=== PATIENT | female | born 1935 | race Caucasian/White ===

== ENCOUNTER 2018-03-31 15:04 | Observation (INO) ==
[2018-03-31 15:43] LABS: Basophils % 0.5 %; Eosinophils # 0.3 K/mcL (0.0-0.6); Eosinophils % 3.5 %; Hematocrit 26.4 % (35.3-44.9); Hemoglobin 9.1 g/dL (11.5-15.4); Lymphocytes % 25.2 %; Mean Corpuscular HGB Conc 34.5 g/dL (31.6-35.5); Mean Corpuscular Hemoglobin 31.6 pg (28.0-33.3); Mean Corpuscular Volume 91.7 fL (83.0-100.0); Mean Platelet Volume 11.1 fL (9.4-12.4); Monocytes # 0.9 K/mcL (0.0-1.3); Monocytes % 11.6 %; Neutrophils # 4.7 K/mcL (1.6-8.9); Nucleated Red Blood Cells 0.4 /100 WBC (0); Platelet Count 247 K/mcL (140-400); Red Blood Count 2.88 M/mcL (3.82-4.97); Red Cell Distribution Width 13.5 % (11.5-14.5); Segmented Neutrophils % 58.2 %
[2018-03-31 15:52] LABS: Prothrombin Time 10.9 Seconds (9.4-12.1)
[2018-03-31 15:54] LABS: Activated Partial Thrombo Time 27.8 Seconds (26.0-36.0)
[2018-03-31 16:08] LABS: Troponin I < 0.03 ng/mL (< 0.04)
[2018-03-31 16:09] LABS: Alanine Aminotransferase 15 Units/L (7-52); Albumin 4.1 g/dL (3.5-5.7); Alkaline Phosphatase 69 Units/L (34-104); Aspartate Amino Transferase 16 Units/L (13-39); BUN/Creatinine Ratio 27 (6-26); Bilirubin,Total 0.2 mg/dL (0.3-1.0); Blood Urea Nitrogen 18 mg/dL (8-23); Calcium 9.6 mg/dL (8.6-10.3); Carbon Dioxide 27 mEq/L (23-29); Chloride 106 mEq/L (98-107); Globulin 2.1 g/dL (2.4-3.5); Glucose 141 mg/dL (70-105); Osmolality,Calculated 294 (280-300); Sodium 140 mEq/L (136-145); Total Protein 6.2 g/dL (6.4-8.9); eGFR For Non-African Americans > 60 (> 60)
[2018-03-31] MEDS ORDERED: Pantoprazole 40 MG VIAL IVP ONE (16:17)
--- NOTE | 2018-03-31 17:04 | Emergency Department Note ---
Disposition Clinical Impression: GI bleed due to NSAIDs Anemia Qualifiers: Anemia type: unspecified type Qualified Code(s): D64.9 - Anemia, unspecified Disposition: Admitted As Inpatient Condition: Fair Referrals: Andreas Erazo MD [Primary Care Provider] - Time of Disposition: 17:09 General Adult HPI - General Chief complaint: ED Recheck/Abnormal Lab/Rx Stated complaint: low hemoglobin Time Seen by Provider: 03/31/18 15:20 Source: patient Limitations: no limitations Nursing Notes Reviewed: Yes Vital Signs Reviewed: Yes - History of Present Illness HPI Narrative: Patient is an 83-year-old female who presents to [facility] ED with a chief complaint of low hemoglobin. States she has had 2 episodes of dark tarry stools over the last 2 days. States she has felt sick to her stomach for several days now. She was seen by her primary care physician who did lab work today and found her hemoglobin to be 19.3 which was significantly decreased from her levels last time which were 13. Patient has been on meloxicam since October and takes a low-dose aspirin daily. Denies any chest pain or difficulty breathing. No dizziness or lightheadedness. Has had some upper abdominal discomfort. No problems with urination. Denies any other blood thinning medications. Onset (ago): day(s) (2) Location: abdomen Pain Scale: 0 Improves with: nothing Worsens with: nothing Associated symptoms: Reports: malaise. Denies: chest pain, cough, fever/chills , nausea/vomiting, shortness of breath Treatments Prior to Arrival: none - Related Data Home Medications Medication Instructions Recorded Confirmed Alendronate Sodium [Fosamax] 70 mg PO QWEEK 03/31/18 03/31/18 Aspirin [Lo-Dose Aspirin EC] 81 mg PO DAILY 03/31/18 03/31/18 Cholecalciferol (D-3) [Vitamin D] 1,000 unit PO DAILY 03/31/18 03/31/18 Citalopram Hydrobromide 40 mg PO DAILY 03/31/18 03/31/18 [Citalopram HBr] Losartan/Hydrochlorothiazide 1 tab PO DAILY 03/31/18 03/31/18 [Losartan-Hctz 100-12.5 mg Tab] Lovastatin [Mevacor] 20 mg PO HS 03/31/18 03/31/18 Multivitamin [One Daily Essential] 1 tab PO DAILY 03/31/18 03/31/18 Vitamin E [Vitamin E] 1,000 units PO DAILY 03/31/18 03/31/18 traZODone [TraZODone] 25 - 50 mg PO HS PRN 03/31/18 03/31/18 Allergies Allergy/AdvReac Type Severity Reaction Status Date / Time No Known Allergies Allergy Verified 03/31/18 16:46 All systems ED: reviewed and negative except as stated. Past Medical History - Past Medical History Attestation: Yes The following information was validated with the patient. Source: patient Medical history: Reports: arthritis, hypertension Psychiatric history: Reports: no psych history - Social History Smoking Status: Never smoker Alcohol use: Reports: none Drug use: Reports: none Physical Exam - General Limitations: no limitations General appearance: alert, in no apparent distress - Head Head exam: atraumatic, normocephalic, normal inspection - Eye Eye exam: Present: EOMI - ENT ENT exam: normal exam, normal oropharynx, mucous membranes moist - Neck Neck exam: Present: normal inspection, full ROM, trachea midline - Chest Chest inspection: Present: normal inspection, symmetric chest wall rise - Respiratory Respiratory exam: Present: normal lung sounds bilaterally - Cardiovascular Cardiovascular exam: Present: regular rate, normal rhythm, normal heart sounds - Abdominal Exam Abdominal exam: Present: soft, Non-Tender. Absent: tenderness, distention, guarding, rebound, rigidity - Rectal Exam [employer] present during exam: Yes Rectal exam: Present: normal rectal tone, black stool - Extremities Exam Extremities exam: Present: normal inspection, full ROM. Absent: tenderness, pedal edema - Neurological Exam Neurological exam: Present: alert, oriented X3 - Psychiatric Psychiatric exam: Present: normal affect, normal mood - Skin Skin exam: Present: warm, dry, intact, normal color Course Course Narrative: Patient seen and examined. Complaining of low hemoglobin and black stools. GI bleed workup initiated. Repeat hemoglobin level here is also 9.1. Patient hemodynamically stable. Labwork otherwise around her baseline. I discussed with the endoscopist Dr. Almazan who requests patient be nothing by mouth after midnight. He will scope her in the morning. I discussed with the hospitalists who has requested orthostatic vital signs. - Reevaluation(s) Reevaluation #1: Orthostatics is unremarkable. Patient admitted to the hospitalist service. Her fecal Hemoccult has been sent and is pending. Time: 17:07 Vital Signs Temperature 98.8 F 03/31/18 15:18 Pulse Rate 82 03/31/18 15:18 Respiratory Rate 18 03/31/18 15:18 Blood Pressure 167/69 03/31/18 15:18 O2 Sat by Pulse Oximetry 98 03/31/18 15:18 Temperature 98.8 F 03/31/18 15:18 Pulse Rate 81 03/31/18 16:47 Respiratory Rate 18 03/31/18 15:18 Blood Pressure 168/59 03/31/18 16:47 O2 Sat by Pulse Oximetry 98 03/31/18 15:18 Oxygen Delivery Oxygen Delivery Room Air Medical Decision Making - Medical Records Medical records reviewed: Yes I reviewed the patient's medical records. - Lab Data Lab results reviewed: Yes I reviewed the patient's lab results. Result diagrams: 03/31/18 15:30 03/31/18 15:30 Lab Results 03/31/18 03/31/18 03/31/18 Range/Units 15:30 15:30 15:30 WBC 8.1 (4.3-11.1) K/mcL RBC 2.88 L (3.82-4.97) M/mcL Hgb 9.1 L (11.5-15.4) g/dL Hct 26.4 L (35.3-44.9) % MCV 91.7 (83.0-100.0) fL MCH 31.6 (28.0-33.3) pg MCHC 34.5 (31.6-35.5) g/dL RDW 13.5 (11.5-14.5) % Plt Count 247 (140-400) K/mcL MPV 11.1 (9.4-12.4) fL Immature Gran % 1.0 (0-4) % Seg Neutrophils % 58.2 % Lymphocytes % 25.2 % Monocytes % 11.6 % Eosinophils % 3.5 % Basophils % 0.5 % Neutrophils # 4.7 (1.6-8.9) K/mcL Lymphocytes # 2.0 (0.6-4.6) K/mcL Monocytes # 0.9 (0.0-1.3) K/mcL Eosinophils # 0.3 (0.0-0.6) K/mcL Basophils # 0.0 (0.0-0.2) K/mcL Nucleated RBCs/100 WBC 0.4 H (0) /100 WBC PT 10.9 (9.4-12.1) Seconds INR 1.0 APTT 27.8 (26.0-36.0) Seconds Sodium 140 (136-145) mEq/L Potassium 4.0 (3.5-5.1) mEq/L Chloride 106 (98-107) mEq/L Carbon Dioxide 27 (23-29) mEq/L BUN 18 (8-23) mg/dL Creatinine 0.67 (0.60-1.20) mg/dL Est GFR ( Amer) > 60 (> 60) Est GFR (Non-Af Amer) > 60 (> 60) BUN/Creatinine Ratio 27 H (6-26) Glucose 141 H (70-105) mg/dL Calculated Osmolality 294 (280-300) Calcium 9.6 (8.6-10.3) mg/dL Total Bilirubin 0.2 L (0.3-1.0) mg/dL AST 16 (13-39) Units/L ALT 15 (7-52) Units/L Alkaline Phosphatase 69 (34-104) Units/L Troponin I < 0.03 (< 0.04) ng/mL Serum Total Protein 6.2 L (6.4-8.9) g/dL Albumin 4.1 (3.5-5.7) g/dL Globulin 2.1 L (2.4-3.5) g/dL Albumin/Globulin Ratio 2.0 (1.1-2.2) Blood Type Antibody Screen 03/31/18 Range/Units 15:30 WBC (4.3-11.1) K/mcL RBC (3.82-4.97) M/mcL Hgb (11.5-15.4) g/dL Hct (35.3-44.9) % MCV (83.0-100.0) fL MCH (28.0-33.3) pg MCHC (31.6-35.5) g/dL RDW (11.5-14.5) % Plt Count (140-400) K/mcL MPV (9.4-12.4) fL Immature Gran % (0-4) % Seg Neutrophils % % Lymphocytes % % Monocytes % % Eosinophils % % Basophils % % Neutrophils # (1.6-8.9) K/mcL Lymphocytes # (0.6-4.6) K/mcL Monocytes # (0.0-1.3) K/mcL Eosinophils # (0.0-0.6) K/mcL Basophils # (0.0-0.2) K/mcL Nucleated RBCs/100 WBC (0) /100 WBC PT (9.4-12.1) Seconds INR APTT (26.0-36.0) Seconds Sodium (136-145) mEq/L Potassium (3.5-5.1) mEq/L Chloride (98-107) mEq/L Carbon Dioxide (23-29) mEq/L BUN (8-23) mg/dL Creatinine (0.60-1.20) mg/dL Est GFR ( Amer) (> 60) Est GFR (Non-Af Amer) (> 60) BUN/Creatinine Ratio (6-26) Glucose (70-105) mg/dL Calculated Osmolality (280-300) Calcium (8.6-10.3) mg/dL Total Bilirubin (0.3-1.0) mg/dL AST (13-39) Units/L ALT (7-52) Units/L Alkaline Phosphatase (34-104) Units/L Troponin I (< 0.04) ng/mL Serum Total Protein (6.4-8.9) g/dL Albumin (3.5-5.7) g/dL Globulin (2.4-3.5) g/dL Albumin/Globulin Ratio (1.1-2.2) Blood Type O POSITIVE Antibody Screen NEGATIVE - EKG Data EKG #1 EKG attestation: Yes I reviewed and interpreted this EKG. EKG results narrative: EKG done at 1529 shows normal sinus rhythm with a rate of [address] elevation. There is inverted T waves noted in leads 1, aVL, 2, V4 through V6.
[2018-03-31 17:11] LABS: Magnesium 2.1 mg/dL (1.6-2.6); Phosphorous 3.3 mg/dL (2.7-4.5)
--- NOTE | 2018-03-31 17:22 | Emergency Department Note ---
Disposition Clinical Impression: GI bleed due to NSAIDs Anemia Qualifiers: Anemia type: unspecified type Qualified Code(s): D64.9 - Anemia, unspecified Disposition: Admitted As Inpatient Condition: Fair General Adult HPI - General Chief complaint: ED Recheck/Abnormal Lab/Rx Stated complaint: low hemoglobin Time Seen by Provider: 03/31/18 15:20 Source: patient Limitations: no limitations Nursing Notes Reviewed: Yes Vital Signs Reviewed: Yes - History of Present Illness Location: abdomen Pain Scale: 0 Improves with: nothing Worsens with: nothing Associated symptoms: Reports: malaise. Denies: chest pain, cough, fever/chills , nausea/vomiting, shortness of breath Treatments Prior to Arrival: none - Related Data Home Medications Medication Instructions Recorded Confirmed Alendronate Sodium [Fosamax] 70 mg PO QWEEK 03/31/18 03/31/18 Aspirin [Lo-Dose Aspirin EC] 81 mg PO DAILY 03/31/18 03/31/18 Cholecalciferol (D-3) [Vitamin D] 1,000 unit PO DAILY 03/31/18 03/31/18 Citalopram Hydrobromide 40 mg PO DAILY 03/31/18 03/31/18 [Citalopram HBr] Losartan/Hydrochlorothiazide 1 tab PO DAILY 03/31/18 03/31/18 [Losartan-Hctz 100-12.5 mg Tab] Lovastatin [Mevacor] 20 mg PO HS 03/31/18 03/31/18 Multivitamin [One Daily Essential] 1 tab PO DAILY 03/31/18 03/31/18 Vitamin E [Vitamin E] 1,000 units PO DAILY 03/31/18 03/31/18 traZODone [TraZODone] 25 - 50 mg PO HS PRN 03/31/18 03/31/18 Allergies Allergy/AdvReac Type Severity Reaction Status Date / Time No Known Allergies Allergy Verified 03/31/18 16:46 Past Medical History - Past Medical History Medical history: Reports: arthritis, hypertension Psychiatric history: Reports: no psych history - Social History Smoking Status: Never smoker Alcohol use: Reports: none Drug use: Reports: none Physical Exam - General Limitations: no limitations General appearance: alert, in no apparent distress Course Vital Signs Temperature 98.8 F 03/31/18 15:18 Pulse Rate 82 07/30/18 15:18 Respiratory Rate 18 03/31/18 15:18 Blood Pressure 167/69 03/31/18 15:18 O2 Sat by Pulse Oximetry 98 03/31/18 15:18 Temperature 98.8 F 03/31/18 15:18 Pulse Rate 81 03/31/18 16:47 Respiratory Rate 18 03/31/18 15:18 Blood Pressure 168/59 03/31/18 16:47 O2 Sat by Pulse Oximetry 98 03/31/18 15:18 Oxygen Delivery Oxygen Delivery Room Air Medical Decision Making - Lab Data Result diagrams: 03/31/18 15:30 03/31/18 15:30 Lab Results 03/31/18 03/31/18 03/31/18 Range/Units 15:30 15:30 15:30 WBC 8.1 (4.3-11.1) K/mcL RBC 2.88 L (3.82-4.97) M/mcL Hgb 9.1 L (11.5-15.4) g/dL Hct 26.4 L (35.3-44.9) % MCV 91.7 (83.0-100.0) fL MCH 31.6 (28.0-33.3) pg MCHC 34.5 (31.6-35.5) g/dL RDW 13.5 (11.5-14.5) % Plt Count 247 (140-400) K/mcL MPV 11.1 (9.4-12.4) fL Immature Gran % 1.0 (0-4) % Seg Neutrophils % 58.2 % Lymphocytes % 25.2 % Monocytes % 11.6 % Eosinophils % 3.5 % Basophils % 0.5 % Neutrophils # 4.7 (1.6-8.9) K/mcL Lymphocytes # 2.0 (0.6-4.6) K/mcL Monocytes # 0.9 (0.0-1.3) K/mcL Eosinophils # 0.3 (0.0-0.6) K/mcL Basophils # 0.0 (0.0-0.2) K/mcL Nucleated RBCs/100 WBC 0.4 H (0) /100 WBC PT 10.9 (9.4-12.1) Seconds INR 1.0 APTT 27.8 (26.0-36.0) Seconds Sodium 140 (136-145) mEq/L Potassium 4.0 (3.5-5.1) mEq/L Chloride 106 (98-107) mEq/L Carbon Dioxide 27 (23-29) mEq/L BUN 18 (8-23) mg/dL Creatinine 0.67 (0.60-1.20) mg/dL Est GFR ( Amer) > 60 (> 60) Est GFR (Non-Af Amer) > 60 (> 60) BUN/Creatinine Ratio 27 H (6-26) Glucose 141 H (70-105) mg/dL Calculated Osmolality 294 (280-300) Calcium 9.6 (8.6-10.3) mg/dL Phosphorus 3.3 (2.7-4.5) mg/dL Magnesium 2.1 (1.6-2.6) mg/dL Total Bilirubin 0.2 L (0.3-1.0) mg/dL AST 16 (13-39) Units/L ALT 15 (7-52) Units/L Alkaline Phosphatase 69 (34-104) Units/L Troponin I < 0.03 (< 0.04) ng/mL Serum Total Protein 6.2 L (6.4-8.9) g/dL Albumin 4.1 (3.5-5.7) g/dL Globulin 2.1 L (2.4-3.5) g/dL Albumin/Globulin Ratio 2.0 (1.1-2.2) Blood Type Antibody Screen 03/31/18 Range/Units 15:30 WBC (4.3-11.1) K/mcL RBC (3.82-4.97) M/mcL Hgb (11.5-15.4) g/dL Hct (35.3-44.9) % MCV (83.0-100.0) fL MCH (28.0-33.3) pg MCHC (31.6-35.5) g/dL RDW (11.5-14.5) % Plt Count (140-400) K/mcL MPV (9.4-12.4) fL Immature Gran % (0-4) % Seg Neutrophils % % Lymphocytes % % Monocytes % % Eosinophils % % Basophils % % Neutrophils # (1.6-8.9) K/mcL Lymphocytes # (0.6-4.6) K/mcL Monocytes # (0.0-1.3) K/mcL Eosinophils # (0.0-0.6) K/mcL Basophils # (0.0-0.2) K/mcL Nucleated RBCs/100 WBC (0) /100 WBC PT (9.4-12.1) Seconds INR APTT (26.0-36.0) Seconds Sodium (136-145) mEq/L Potassium (3.5-5.1) mEq/L Chloride (98-107) mEq/L Carbon Dioxide (23-29) mEq/L BUN (8-23) mg/dL Creatinine (0.60-1.20) mg/dL Est GFR ( Amer) (> 60) Est GFR (Non-Af Amer) (> 60) BUN/Creatinine Ratio (6-26) Glucose (70-105) mg/dL Calculated Osmolality (280-300) Calcium (8.6-10.3) mg/dL Phosphorus (2.7-4.5) mg/dL Magnesium (1.6-2.6) mg/dL Total Bilirubin (0.3-1.0) mg/dL AST (13-39) Units/L ALT (7-52) Units/L Alkaline Phosphatase (34-104) Units/L Troponin I (< 0.04) ng/mL Serum Total Protein (6.4-8.9) g/dL Albumin (3.5-5.7) g/dL Globulin (2.4-3.5) g/dL Albumin/Globulin Ratio (1.1-2.2) Blood Type O POSITIVE Antibody Screen NEGATIVE Attestation Statement - Attestation Attestation: I, Mauricio Vallecillo, examined this patient and my medical decision-making was reviewed with the [employer]/PA/Advanced Practice Nurse/Resident Physician. I agree with the documented findings, disposition and treatment plan as described except to the extent set forth below. 83-year-old female presents emergency Department with increasing weakness and fatigue. She states she has had multiple dark bowel movements over the past few days. She denies chest pain or abdominal pain or shortness of breath or syncopal event or palpitations. Patient was evaluated by her primary care provider who did labs today. She was noted to have significant anemia compared to her previous labs. Patient was sent to the emergency department for further evaluation. Hemoglobin is 9.1 in the emergency department today. Patient states last dark bowel movement was this morning. Vital signs are stable in emergency department. She will be admitted to the hospitalist for further care and evaluation of likely GI bleed.
[2018-03-31] MEDS: 0.9 % Sodium Chloride 1,000 ML IVC SCH (18:38)
[2018-03-31] MEDS: Pantoprazole 40 MG in 0.9 % Sodium Chloride Mini Bag 100 ML IVC SCH ×2 (18:38→23:21)
--- NOTE | 2018-03-31 19:20 | Internal Med History&Physical ---
Date of Encounter: 03/31/18 Time of Encounter: 19:18 Internal Medicine - H&P: HPI Chief complaint: black stools Admitted From: Home Plans for Post Hospital Care: Home History of present illness: Ms. Sams is a 83 year old female with history of hypertension and osteoarthritis on meloxicam presented to the ED with complaint of black stool. As per patient she was recently started on meloxicam for her osteoarthritis pain and as of last week she started to feel epigastric pain and generalized weakness. She called her pharmacist and the pharmacist recommended that she stop the meloxicam. Basic labs that were done at her PCP showed anemia and she was called to come to the emergency department for further evaluation. The symptoms have progressively worsened until 2 days before admission when she had one episode of black stool. The day before admission she also had an episode of black stool. She denies clots, lucinda red blood, maroon stools, no history of hemorrhoids, denies hematemesis, denies syncope, shortness of breath, chest pain, dizziness or lightheadedness. She does report that getting through all her chores during the day has become progressively worse since last week. Not taking the meloxicam alleviates her symptoms but taking it is associated with epigastric pain. The last time she had black stool was one episode the day before admission. She denies any black stools while being evaluated in the ED. Denies epigastric pain currently. she denies fever, chills, recent trauma, no falls, denies palpitations, heat or cold intolerance. 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 Psychiatric history: no psych history - Past Surgical History Additional surgical history: Hysterectomy - Social History Smoking Status: Never smoker Alcohol use: none Drug use: none Internal Medicine - H&P: Meds Alendronate Sodium [Fosamax] 70 mg PO QWEEK 03/31/18 [History] Aspirin [Lo-Dose Aspirin EC] 81 mg PO DAILY 03/31/18 [History] Cholecalciferol (D-3) [Vitamin D] 1,000 unit PO DAILY 03/31/18 [History] Citalopram Hydrobromide [Citalopram HBr] 40 mg PO DAILY 03/31/18 [History] Losartan/Hydrochlorothiazide [Losartan-Hctz 100-12.5 mg Tab] 1 tab PO DAILY [History] Lovastatin [Mevacor] 20 mg PO HS 03/31/18 [History] Multivitamin [One Daily Essential] 1 tab PO DAILY 03/31/18 [History] Vitamin E [Vitamin E] 1,000 units PO DAILY 03/31/18 [History] traZODone [TraZODone] 25 - 50 mg PO HS PRN 03/31/18 [History] 3 Allergy/AdvReac Type Severity Reaction Status Date / Time No Known Allergies Allergy Verified 03/31/18 16:46 All Systems PM: review of systems was performed and is negative for pertinent findings except as documented above in the HPI. - Constitutional Vitals: Temp Pulse Resp BP Pulse Ox 98.4 F 63 15 148/63 98 03/31/18 18:59 03/31/18 18:59 03/31/18 18:59 03/31/18 18:59 03/31/18 18:59 - Other Additional findings: General: Patient is alert, oriented, no acute distress, Head: atraumatic, normocephalic, Eye: normal appearance, PERRL, no scleral icterus, no conjunctival injection ENT: mucous membranes moist, normal external ear exam Neck: normal inspection, trachea midline, full ROM, no carotid bruits Chest: normal inspection, symmetric chest rise Respiratory: Good respiratory effort. Bilateral breath sounds are clear without wheezing, crackles, or rhonchi. Cardiovascular: Regular rate and rhythm. s1 and s2 No clicks, rubs, gallops, or murmors. Abdomen: Bowel sounds present normoactive x-4 quadrants. Abdomen is soft, nondistended. no Epigastric tenderness. No guarding or rebound. No organomegaly noted, obese musculoskeletal: Spontaneously moving all extremities. no edema, no calf tenderness Skin: warm, dry, intact. Neuro: Alert and oriented x4. Sensation light touch intact. Cranial nerves 2- 12 is intact. Not aphasic, gait is steady, rapid hand movements intact, finger- to-nose intact, Psych: Patient's affect is normal Internal Med - H&P Results - Labs CBC & Chem 7: 03/31/18 15:30 03/31/18 15:30 - Assessment and plan (1) GI bleed due to NSAIDs Current Visit: Yes Status: Acute Assessment and plan: most likely secondary to NSAID use as per chart review H&H in October 2017 13.2/38.1 now is 9.1/26.4 she is hemodynamically stable type and screen stat cbc Q6H transfuse if hemodynamically unstable or H/h trends down further orthostatics done and negative GI was consulted in the ED (Dr. avila) and on board for EGD in the AM - recommended to follow CBC IV PPI hold all antiplatelets and Anti coagulation guaiac sent hold BP meds IVF NS at 84 ml/hr follow coags in the AM (2) HTN (hypertension) Current Visit: Yes Status: Acute Assessment and plan: hold all BP medications for now she has acute anemia secondary to GIB Qualifiers: Hypertension type: essential hypertension Qualified Code(s): I10 - Essential (primary) hypertension (3) DVT prophylaxis Current Visit: Yes Status: Acute Assessment and plan: SCDs - Time Spent With Patient Total time spent is greater than 50% in coordination of care (as documented) at patient's floor/unit and/or counseling patient:
[2018-03-31 21:04] LABS: Bilirubin,Urine Negative (Negative); Blood,Urine Negative (Negative); Clarity,Urine Clear (Clear); Color,Urine Yellow (Yellow); Glucose,Urine (UA) Normal (Normal); Ketones,Urine Negative (Negative); Leukocyte Esterase,Urine Moderate (Negative); Nitrite,Urine Negative (Negative); Protein,Urine Negative (Neg-Trace); Specific Gravity,Urine 1.025 (1.010-1.025); Urobilinogen,Urine Normal (Normal)
[2018-03-31 21:05] LABS: Basophils # 0.1 K/mcL (0.0-0.2); Basophils % 0.6 %; Eosinophils # 0.2 K/mcL (0.0-0.6); Hematocrit 25.8 % (35.3-44.9); Hemoglobin 8.7 g/dL (11.5-15.4); Immature Granulocytes % 0.9 % (0-4); Lymphocytes # 2.4 K/mcL (0.6-4.6); Lymphocytes % 30.8 %; Mean Corpuscular HGB Conc 33.7 g/dL (31.6-35.5); Mean Corpuscular Hemoglobin 30.9 pg (28.0-33.3); Mean Corpuscular Volume 91.5 fL (83.0-100.0); Mean Platelet Volume 10.8 fL (9.4-12.4); Monocytes # 0.9 K/mcL (0.0-1.3); Monocytes % 11.7 %; Neutrophils # 4.1 K/mcL (1.6-8.9); Platelet Count 236 K/mcL (140-400); Red Blood Count 2.82 M/mcL (3.82-4.97); Red Cell Distribution Width 13.5 % (11.5-14.5)
[2018-03-31 21:08] LABS: Bacteria,Urine None Seen per hpf (None-Few); Hyaline Casts,Urine None Seen per lpf (None-Few); RBC,Urine 0-3 per hpf (0-3); Squamous Epithelial Cell,Urine Moderate per lpf (None-Few)
[2018-04-01] MEDS: Pantoprazole 40 MG in 0.9 % Sodium Chloride Mini Bag 100 ML IVC SCH ×2 (04:40→09:49)
[2018-04-01 04:42] LABS: Basophils % 0.4 %; Eosinophils # 0.3 K/mcL (0.0-0.6); Eosinophils % 3.6 %; Hemoglobin 8.3 g/dL (11.5-15.4); Immature Granulocytes % 0.9 % (0-4); Lymphocytes # 2.5 K/mcL (0.6-4.6); Lymphocytes % 31.8 %; Mean Corpuscular HGB Conc 33.2 g/dL (31.6-35.5); Mean Corpuscular Hemoglobin 30.3 pg (28.0-33.3); Mean Corpuscular Volume 91.2 fL (83.0-100.0); Mean Platelet Volume 10.9 fL (9.4-12.4); Monocytes # 0.8 K/mcL (0.0-1.3); Monocytes % 10.7 %; Neutrophils # 4.1 K/mcL (1.6-8.9); Platelet Count 250 K/mcL (140-400); Red Blood Count 2.74 M/mcL (3.82-4.97); Red Cell Distribution Width 13.9 % (11.5-14.5); Segmented Neutrophils % 52.6 %
[2018-04-01] MEDS: 0.9 % Sodium Chloride 1,000 ML IVC SCH ×2 (04:43→11:46)
[2018-04-01 04:47] LABS: Prothrombin Time 11.1 Seconds (9.4-12.1)
[2018-04-01 04:50] LABS: Activated Partial Thrombo Time 27.3 Seconds (26.0-36.0)
[2018-04-01 05:00] LABS: BUN/Creatinine Ratio 25 (6-26); Blood Urea Nitrogen 16 mg/dL (8-23); Calcium 9.1 mg/dL (8.6-10.3); Carbon Dioxide 27 mEq/L (23-29); Chloride 109 mEq/L (98-107); Glucose 102 mg/dL (70-105); Osmolality,Calculated 293 (280-300); Potassium 3.9 mEq/L (3.5-5.1); Sodium 141 mEq/L (136-145); eGFR For Non-African Americans > 60 (> 60)
--- NOTE | 2018-04-01 08:29 | Internal Medicine Consult Note ---
Date of Encounter: 04/04/18 Time of Encounter: 08:27 - Assessment and Plan (1) HTN (hypertension) Status: Chronic Qualifiers: Hypertension type: essential hypertension Qualified Code(s): I10 - Essential (primary) hypertension (2) GI bleed due to NSAIDs Status: Resolved Assessment and plan: We have stopped her aspirin, had not continue the nonsteroidal. She is currently on an IV PPI therapy. She does warrant upper endoscopy this morning. I have discussed risks and benefits of the procedure with her today she has consented. There is a possibility that if this does not look too bad from inflammation standpoint she can be discharged later today. (3) Anemia Status: Acute Assessment and plan: Consistent with acute blood loss anemia. Qualifiers: Anemia type: other cause Other causes of anemia: acute posthemorrhagic Qualified Code(s): D62 - Acute posthemorrhagic anemia Internal Medicine - CN: HPI - Data of Consult Consult date: 04/01/18 Requesting Physician: Roberta Servin MD - Consult Narrative Reason for consult: Melena and drop in hemoglobin, consistent with possible upper GI bleed History of present illness: Ms. Sams is a 83 year old female admitted to the hospitalist service yesterday. I was asked to see her for possible need of endoscopy. She admits roughly a week ago began having a nausea-type feeling and some anorexia. Unfortunately roughly 4 days ago she then had 2 dark melanotic stools. Around that time also she had some exertional fatigue. Should be noted that October of this year, she was started on a nonsteroidal was also taking aspirin therapy along with a bisphosphonate. She reports no abdominal pain, and no vomiting or hematemesis. She has never had previous upper GI bleeding. Her last endoscopy was a colonoscopy in 2010 which was unremarkable. 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 Psychiatric history: no psych history - Past Surgical History Surgical History: knee replacement Additional surgical history: Hysterectomy - Social History Smoking Status: Never smoker Alcohol use: none Drug use: none - Constitutional Constitutional: anorexia, excessive sweating, fatigue, lethargy, weakness, no chills, no fever(s), no falls, no weight loss - EENT Eyes: no change in vision, no other visual disturbances - Cardiovascular Cardiovascular ROS IM: diaphoresis, dyspnea on exertion, no chest pain, no edema , no lightheadedness, no syncope - Respiratory Respiratory: no dyspnea, no wheezing - Gastrointestinal Gastrointestinal: change in stool character, dyspepsia, melena, nausea, no abdominal pain, no coffee ground emesis, no heartburn, no hematemesis, no hematochezia, no vomiting - Genitourinary Genitourinary: no hematuria - Neurological Neurological ROS: no abnormal gait, no abnormal hearing - Endocrine Endocrine IM: fatigue, no heat intolerance Internal Medicine - CN: Meds Cholecalciferol (D-3) [Vitamin D] 1,000 unit PO DAILY 03/31/18 [History] Citalopram Hydrobromide [Citalopram HBr] 40 mg PO DAILY 03/31/18 [History] Losartan/Hydrochlorothiazide [Losartan-Hctz 100-12.5 mg Tab] 1 tab PO DAILY [History] Lovastatin [Mevacor] 20 mg PO HS 03/31/18 [History] Multivitamin [One Daily Essential] 1 tab PO DAILY 03/31/18 [History] Vitamin E 1,000 units PO DAILY 03/31/18 [History] traZODone [TraZODone] 25 - 50 mg PO HS PRN 03/31/18 [History] Ferrous Sulfate 325 mg PO BID 30 Days #60 tablet 04/02/18 [Rx] Ferrous Sulfate 325 mg PO BIDWM 30 Days #60 tablet 04/02/18 [Rx] Omeprazole [PriLOSEC] 40 mg PO DAILY 30 Days #30 cap 04/02/18 [Rx] Omeprazole [PriLOSEC] 40 mg PO DAILY@0630 30 Days #30 capsule. 04/02/18 [Rx] 3 Allergy/AdvReac Type Severity Reaction Status Date / Time No Known Allergies Allergy Verified 03/31/18 16:46 Internal Medicine - CN: Exam - Constitutional Vitals: Temp Pulse Resp BP Pulse Ox 97.8 F 83 16 157/70 96 04/01/18 07:47 04/01/18 07:47 04/01/18 07:47 04/01/18 07:47 04/01/18 07:47 General appearance IM: Present: A&O X 3, answers questions appropriately Exam: Younger than her stated age. - Head Head exam: Present: atraumatic - Eye Eye exam: Present: EOMI, normal appearance - ENT ENT exam: Present: mucous membranes moist, normal exam - Neck Neck exam general surgery: Present: supple, trachea midline - Respiratory Respiratory exam: Present: CTAB - Cardiovascular Cardiovascular exam IM: Present: RRR. Absent: JVD - GI/Abdominal GI/Abdominal exam IM: Present: normal bowel sounds, soft, no peritoneal signs. Absent: rigid, tenderness - Rectal Rectal exam: Present: deferred Internal Medicine - CN: Reslt - Labs CBC & Chem 7: 04/02/18 05:38 04/02/18 05:38 Labs: Short CBC 03/31/18 04/01/18 Range/Units 20:50 03:17 WBC 7.8 7.7 (4.3-11.1) K/mcL Hgb 8.7 L 8.3 L (11.5-15.4) g/dL Hct 25.8 L 25.0 L (35.3-44.9) % Plt Count 236 250 (140-400) K/mcL Neutrophils # 4.1 4.1 (1.6-8.9) K/mcL BMP 04/01/18 03:17 Sodium 141 Potassium 3.9 Chloride 109 H Carbon Dioxide 27 BUN 16 Creatinine 0.64 Glucose 102 Calcium 9.1 Urine 03/31/18 Range/Units 20:39 Urine Color Yellow (Yellow) Urine Clarity Clear (Clear) Urine pH 6.0 (5.0-8.0) pH Units Ur Specific [place] 1.025 (1.010-1.025) Urine Protein Negative (Neg-Trace) mg/dL Urine Glucose (UA) Normal (Normal) mg/dL - ABG Interpretation ABG results: PT/INR, D-dimer PT 11.1 Seconds (9.4-12.1) 04/01/18 03:17 Consult Discharge Plan - Plan Instructions: Anemia (GEN) Referrals: Sandie Lawton CNP [Partnered Physician] - 04/08/18 10:30 am Prescriptions: Ferrous Sulfate 325 mg PO BID 30 Days #60 tablet Omeprazole [PriLOSEC] 40 mg PO DAILY 30 Days #30 cap
[2018-04-01 09:04] LABS: Basophils % 0.4 %; Eosinophils # 0.3 K/mcL (0.0-0.6); Eosinophils % 4.3 %; Hematocrit 25.6 % (35.3-44.9); Hemoglobin 8.8 g/dL (11.5-15.4); Immature Granulocytes % 0.7 % (0-4); Lymphocytes % 25.7 %; Mean Corpuscular HGB Conc 34.4 g/dL (31.6-35.5); Mean Corpuscular Hemoglobin 31.4 pg (28.0-33.3); Mean Corpuscular Volume 91.4 fL (83.0-100.0); Mean Platelet Volume 10.8 fL (9.4-12.4); Monocytes # 0.9 K/mcL (0.0-1.3); Monocytes % 11.6 %; Neutrophils # 4.4 K/mcL (1.6-8.9); Platelet Count 243 K/mcL (140-400); Red Cell Distribution Width 13.7 % (11.5-14.5); Segmented Neutrophils % 57.3 %
[2018-04-01] MEDS ORDERED: *HR* Midazolam HCl 5 MG/5 ML VIAL IVP ONE ×2 (11:15→11:45)
[2018-04-01] MEDS ORDERED: *HR* FentaNYL (PF) 100 MCG/2 ML VIAL ONE (11:16)
[2018-04-01] MEDS ORDERED: Tetracaine/Benzocaine/Butamben 200MG/SPRAY (100SPY/BOT) MM ONE (11:45)
[2018-04-01] MEDS ORDERED: Simethicone 40 MG/0.6 ML MLS IR ONE (11:45)
[2018-04-01] MEDS ORDERED: *HR* FentaNYL (PF) 100 MCG/2 ML VIAL IVP ONE (11:45)
--- NOTE | 2018-04-01 11:45 | Pre-Sedation Evaluation ---
Pre-sedation evaluation - Pre-sedation checklist Date of procedure: 04/01/18 Procedure: EGD Recent Vitals: Last Vital Signs Temp 98.6 F 04/01/18 11:34 Pulse 62 04/01/18 11:34 Resp 18 04/01/18 11:34 BP 165/64 04/01/18 11:34 Pulse Ox 96 04/01/18 11:34 H&P (including ROS) documented in medical record: Yes Previous reaction to sedatives/anesthetics: No Dietary Status: NPO after Midnight Airway Assessment: Patient can open mouth completely, TMJ function normal Dentition: No loose teeth or bridges Possible difficult airway: No ASA Classification *see protocol: CLASS II-Mild systemic disease Cardiac Registry (Cardio Only) - Functional Capacity - Clincal Frailty Scale
--- NOTE | 2018-04-01 12:09 | Event Note ---
Date of Encounter: 04/01/18 Time of Encounter: 12:00 EGD Findings 1. Multiple small erosions in the Antrum; non-bleeding 2. Small, superficial ulcer, no bleeding, red spots or clots noted.. could not advance the scope into the third part sec. to surrounding edema. Recc: 1. Full liquids today 2. Probable DC in the AM tomorrow if HGB is stable and she tolerates diet. 3. Home with Iron and PPI 4. I will follow up the biopsies, testing for H. Pylori 5. No further NSAIDS, Hold ASA, and hold the Fosamax.
[2018-04-01] MEDS ORDERED: NON-FORMULARY MEDICATION 1 EACH EACH (Losartan/Hydrochlorothiazide [Losartan-Hctz 100-12.5 PO SCH (13:15)
--- NOTE | 2018-04-01 13:27 | Internal Med Progress Note ---
Hospitalist Progress Note - Encounter Date of Encounter: 04/01/18 Time of Encounter: 13:19 - Subjective Interval History: Cheif complaint Anemia Ms. Sams is a 83 year old female with history of hypertension and osteoarthritis on meloxicam presented to the ED with complaint of black stool. she was admitted for acute normocytic anemia secondary to most likely upper GI bleed as she was recently started on meloxicam. On admission she had a hemoglobin level of 9.1 a drop from her baseline of 13. She was started on IV fluids, GI was consulted and she was scheduled for endoscopy on April 01. Hemoglobin was followed Q6H and remained stable at 8.8. She had no episodes of melena, hematochezia, hematemesis overnight. denies epigastric pain. She remained nothing by mouth, currently denies any headache, vision changes, nausea, vomiting, diarrhea, CP, SOB, weakness, LOC, palpitations, Syncope. She had endoscopy done- results below. - Exam Vitals: Temp Pulse Resp BP Pulse Ox 98.6 F 67 18 145/78 97 04/01/18 11:34 04/01/18 11:59 04/01/18 11:59 04/01/18 11:59 04/01/18 11:59 Exam: General: Patient is alert, oriented, no acute distress, Head: atraumatic, normocephalic, Eye: normal appearance, PERRL, no scleral icterus, no conjunctival injection ENT: mucous membranes moist, normal external ear exam Neck: normal inspection, trachea midline, full ROM, no carotid bruits Chest: normal inspection, symmetric chest rise Respiratory: Good respiratory effort. Bilateral breath sounds are clear without wheezing, crackles, or rhonchi. Cardiovascular: Regular rate and rhythm. s1 and s2 No clicks, rubs, gallops, or murmors. Abdomen: Bowel sounds present normoactive x-4 quadrants. Abdomen is soft, nondistended. no Epigastric tenderness. No guarding or rebound. No organomegaly noted, obese musculoskeletal: Spontaneously moving all extremities. no edema, no calf tenderness Skin: warm, dry, intact. Neuro: Alert and oriented x4. Sensation light touch intact. Cranial nerves 2- 12 is intact. Not aphasic, gait is steady, rapid hand movements intact, finger- to-nose intact, Psych: Patient's affect is normal - Assessment and Plan (1) GI bleed due to NSAIDs Current Visit: Yes Status: Acute Assessment and Plan: most likely secondary to NSAID use/fosomax/ASA Hemoglobin followed in a stable at 8.8 she remains hemodynamically stable and did not require any transfusions Will continue to follow CBC daily GI was consulted status post endoscopy on 04/01/18- results below We will start her on oral PPIs-protonic strip discontinued hold all antiplatelets and Anti coagulation - NSAID use/fosomax/ASA BP meds started (2) Acute blood loss anemia Current Visit: Yes Status: Acute Assessment and Plan: Stable Secondary to above, management as above (3) HTN (hypertension) Current Visit: Yes Status: Chronic Assessment and Plan: We will restart home meds DVT Prophylaxis: SCDs, ambulation - Time Spent with Patient Total time spent is greater than 50% in coordination of care (as documented) at patient's floor/unit and/or counseling patient: Greater than 35 minutes Plan of Care Discussed with: patient Internal Medicine: Result - Labs CBC & Chem 7: 04/01/18 08:41 04/01/18 03:17 Labs: Short CBC 03/31/18 04/01/18 04/01/18 Range/Units 20:50 03:17 08:41 WBC 7.8 7.7 7.6 (4.3-11.1) K/mcL Hgb 8.7 L 8.3 L 8.8 L (11.5-15.4) g/dL Hct 25.8 L 25.0 L 25.6 L (35.3-44.9) % Plt Count 236 250 243 (140-400) K/mcL Neutrophils # 4.1 4.1 4.4 (1.6-8.9) K/mcL BMP 04/01/18 03:17 Sodium 141 Potassium 3.9 Chloride 109 H Carbon Dioxide 27 BUN 16 Creatinine 0.64 Glucose 102 Calcium 9.1 Urine 03/31/18 Range/Units 20:39 Urine Color Yellow (Yellow) Urine Clarity Clear (Clear) Urine pH 6.0 (5.0-8.0) pH Units Ur Specific [place] 1.025 (1.010-1.025) Urine Protein Negative (Neg-Trace) mg/dL Urine Glucose (UA) Normal (Normal) mg/dL - ABG Interpretation ABG results: PT/INR, D-dimer PT 11.1 Seconds (9.4-12.1) 04/01/18 03:17 - Diagnostic Studies Other Images Additional comments: endoscopy 04/01/18 EGD Findings 1. Multiple small erosions in the Antrum; non-bleeding 2. Small, superficial ulcer, no bleeding, red spots or clots noted.. could not advance the scope into the third part sec. to surrounding edema. Recc: 1. Full liquids today 2. Probable DC in the AM tomorrow if HGB is stable and she tolerates diet. 3. Home with Iron and PPI 4. I will follow up the biopsies, testing for H. Pylori 5. No further NSAIDS, Hold ASA, and hold the Fosamax. - VTE Documentation of Mechanical Device: Intermittent pneumatic compression device Consult Discharge Plan - Plan Referrals: Andreas Erazo MD [Primary Care Provider] - (3) HTN (hypertension) Qualifiers: Hypertension type: essential hypertension Qualified Code(s): I10 - Essential (primary) hypertension
[2018-04-01] MEDS: hydroCHLOROthiazide 25 MG TABLET PO SCH (16:20)
[2018-04-01] MEDS ORDERED: Pantoprazole 40 MG VIAL IVP ONE (20:04)
[2018-04-02 06:44] LABS: BUN/Creatinine Ratio 16 (6-26); Blood Urea Nitrogen 10 mg/dL (8-23); Calcium 9.4 mg/dL (8.6-10.3); Carbon Dioxide 28 mEq/L (23-29); Chloride 107 mEq/L (98-107); Glucose 109 mg/dL (70-105); Osmolality,Calculated 290 (280-300); Potassium 4.1 mEq/L (3.5-5.1); Sodium 140 mEq/L (136-145); eGFR For Non-African Americans > 60 (> 60)
[2018-04-02 07:07] LABS: Hematocrit 24.8 % (35.3-44.9); Hemoglobin 8.4 g/dL (11.5-15.4); Mean Corpuscular HGB Conc 33.9 g/dL (31.6-35.5); Mean Corpuscular Hemoglobin 30.4 pg (28.0-33.3); Mean Corpuscular Volume 89.9 fL (83.0-100.0); Mean Platelet Volume 11.2 fL (9.4-12.4); Platelet Count 256 K/mcL (140-400); Red Blood Count 2.76 M/mcL (3.82-4.97); Red Cell Distribution Width 14.1 % (11.5-14.5)
[2018-04-02] MEDS: 0.9 % Sodium Chloride 1,000 ML IVC SCH (08:20)
[2018-04-02] MEDS: hydroCHLOROthiazide 25 MG TABLET PO SCH (08:32)
[2018-04-02] MEDS ORDERED: Multivit/Ca/Min/Fe/FA 1 TAB TABLET PO SCH (09:00)
--- NOTE | 2018-04-02 09:07 | Internal Med Progress Note ---
Date of Encounter: 04/07/18 Time of Encounter: 08:05 - Assessment and plan (1) Duodenal ulcer Status: Acute Assessment and plan: Secon. to NSAIDS most likely. This appeared to be clean based, she is tolerating diet. Ok for DC. No more ASA or NSAIDS. WIll need PPI and Iron upon DC. I will follow up testing for H. Pylori. She does have blood loss anemia (2) Anemia Status: Acute Qualifiers: Anemia type: other cause Other causes of anemia: acute posthemorrhagic Qualified Code(s): D62 - Acute posthemorrhagic anemia (3) HTN (hypertension) Status: Chronic Qualifiers: Hypertension type: essential hypertension Qualified Code(s): I10 - Essential (primary) hypertension (4) Erosion of stomach determined by endoscopy Status: Acute - Time Spent With Patient 25 - 35 minutes - Subjective Interval history: Tolerating diet, no abd. pain. No more melena. Appears HGB is stable. - Constitutional Vitals: Temp Pulse Resp BP Pulse Ox 97.4 F L 73 15 180/54 96 04/02/18 06:30 04/02/18 06:30 04/02/18 06:30 04/02/18 08:50 04/02/18 06:30 General appearance: Present: A&O X 3, answers questions appropriately - Respiratory Respiratory exam: Present: CTAB - Cardiovascular Cardiovascular exam: Present: +S1, +S2. Absent: JVD - GI/Abdominal GI/Abdominal exam: Present: normal bowel sounds, soft, no peritoneal signs. Absent: mass, splenomegaly, tenderness Internal Medicine: Result - Labs CBC & Chem 7: 04/02/18 05:38 04/02/18 05:38 Labs: Short CBC 04/01/18 04/02/18 Range/Units 08:41 05:38 WBC 7.6 7.8 (4.3-11.1) K/mcL Hgb 8.8 L 8.4 L (11.5-15.4) g/dL Hct 25.6 L 24.8 L (35.3-44.9) % Plt Count 243 256 (140-400) K/mcL Neutrophils # 4.4 (1.6-8.9) K/mcL BMP 04/02/18 05:38 Sodium 140 Potassium 4.1 Chloride 107 Carbon Dioxide 28 BUN 10 Creatinine 0.64 Glucose 109 H Calcium 9.4 - ABG Interpretation ABG results: PT/INR, D-dimer PT 11.1 Seconds (9.4-12.1) 04/01/18 03:17 - VTE Documentation of Mechanical Device: Intermittent pneumatic compression device Consult Discharge Plan - Plan Instructions: Anemia (GEN) Referrals: Sandie Lawton CNP [Partnered Physician] - 04/08/18 10:30 am Prescriptions: Ferrous Sulfate 325 mg PO BID 30 Days #60 tablet Omeprazole [PriLOSEC] 40 mg PO DAILY 30 Days #30 cap
--- NOTE | 2018-04-02 10:26 | Discharge Summary ---
- NOTES TO OUTPATIENT PROVIDER Notes to Outpatient Provider: follow up with PMD about restarting her fosomax. please do not prescribe NSAIDs or ASA. to follow up with her H.Pylori adn endoscopy biopsy results. monitor H/H does have acute blood loss anemia Orders not resulted at time of discharge: Pending orders 04/01/18 11:53 H. pylori Urease Culture [RM] Stat 04/01/18 11:57 Surgical Pathology [PTH] Routine Date of Encounter: 04/02/18 Time of Encounter: 10:25 - Discharge Diagnosis (1) GI bleed due to NSAIDs Priority: Primary Status: Resolved (2) Anemia Priority: Secondary Status: Acute Qualifiers: Anemia type: other cause Other causes of anemia: acute posthemorrhagic Qualified Code(s): D62 - Acute posthemorrhagic anemia (3) HTN (hypertension) Priority: Secondary Status: Chronic Qualifiers: Hypertension type: essential hypertension Qualified Code(s): I10 - Essential (primary) hypertension (4) Duodenal ulcer Priority: Secondary Status: Acute (5) Erosion of stomach determined by endoscopy Priority: Secondary Status: Acute Hospital course: Ms. Sams is a 83 year old female with history of hypertension and osteoarthritis on meloxicam presented to the ED with complaint of black stool. As per patient she was recently started on meloxicam for her osteoarthritis pain and as of last week she started to feel epigastric pain and generalized weakness. She called her pharmacist and the pharmacist recommended that she stop the meloxicam. Basic labs that were done at her PCP showed anemia and she was called to come to the emergency department for further evaluation. The symptoms have progressively worsened until 2 days before admission when she had one episode of black stool. The day before admission she also had an episode of black stool. She denies clots, lucinda red blood, maroon stools, no history of hemorrhoids, denies hematemesis, denies syncope, shortness of breath, chest pain, dizziness or lightheadedness. She does report that getting through all her chores during the day has become progressively worse since last week. she rpesented to due above presentation. as per chart review H&H in October 2017 13.2/38.1 was 9.1/26.4 on admission. She was started on Protonix drip along with IV fluids. GI was consulted who recommended endoscopy. On April 01 she had endoscopy- results below 1. Multiple small erosions in the Antrum; non-bleeding 2. Small, superficial ulcer, no bleeding, red spots or clots noted.. could not advance the scope into the third part sec. to surrounding edema. Her aspirin/ Fosamax was discontinued she was told to refrain from using any NSAIDs. H&H remained stable, she also tolerated by mouth diet. She was told to follow-up with her H pylori testing along with the biopsy obtained. She was told to come to the ED if she notices any more black stools, bright red blood per rectum or if she vomits any bright red blood. Discharge discussed with: patient, nurse - Time Spent with Patient Total time spent providing and/or coordinating discharge services: Less than 30 minutes (25) - Discharge Medications Home Medications: Cholecalciferol (D-3) [Vitamin D] 1,000 unit PO DAILY 03/31/18 [History] Citalopram Hydrobromide [Citalopram HBr] 40 mg PO DAILY 03/31/18 [History] Losartan/Hydrochlorothiazide [Losartan-Hctz 100-12.5 mg Tab] 1 tab PO DAILY [History] Lovastatin [Mevacor] 20 mg PO HS 03/31/18 [History] Multivitamin [One Daily Essential] 1 tab PO DAILY 03/31/18 [History] Vitamin E 1,000 units PO DAILY 03/31/18 [History] traZODone [TraZODone] 25 - 50 mg PO HS PRN 03/31/18 [History] Ferrous Sulfate 325 mg PO BIDWM 30 Days #60 tablet 04/02/18 [Rx] Omeprazole [PriLOSEC] 40 mg PO DAILY@30 30 Days #30 capsule. 04/02/18 [Rx] Allergies/Adverse Reactions: 3 Allergy/AdvReac Type Severity Reaction Status Date / Time No Known Allergies Allergy Verified 03/31/18 16:46 Date of admission: 03/31/18 17:06 Primary care physician: Andreas Erazo MD - Constitutional Vitals: Temp Pulse Resp BP Pulse Ox 97.4 F L 73 15 180/54 96 04/02/18 06:30 04/02/18 06:30 04/02/18 06:30 04/02/18 08:50 04/02/18 06:30 General appearance: Present: A&O X 3, answers questions appropriately Exam: General: Patient is alert, oriented, no acute distress, Head: atraumatic, normocephalic, Eye: normal appearance, PERRL, no scleral icterus, no conjunctival injection ENT: mucous membranes moist, normal external ear exam Neck: normal inspection, trachea midline, full ROM, no carotid bruits Chest: normal inspection, symmetric chest rise Respiratory: Good respiratory effort. Bilateral breath sounds are clear without wheezing, crackles, or rhonchi. Cardiovascular: Regular rate and rhythm. s1 and s2 No clicks, rubs, gallops, or murmors. Abdomen: Bowel sounds present normoactive x-4 quadrants. Abdomen is soft, nondistended. no Epigastric tenderness. No guarding or rebound. No organomegaly noted, obese musculoskeletal: Spontaneously moving all extremities. no edema, no calf tenderness Skin: warm, dry, intact. Neuro: Alert and oriented x4. Sensation light touch intact. Cranial nerves 2- 12 is intact. Not aphasic, gait is steady, rapid hand movements intact, finger- to-nose intact, Psych: Patient's affect is normal - Patient Status Disposition: Home, Self-Care Condition: Fair Functional capacity at discharge: independent ambulation Overall status at discharge: patient is progressing back to baseline - Discharge Instructions Instructions: Anemia (GEN) Follow Up With: Andreas Erazo MD [Primary Care Provider] - Anderson Mullen DO [Partnered Physician] - - Diet and Activity Activity: increase activity as tolerated Diet: advance to your usual diet - VTE Documentation of Mechanical Device: Intermittent pneumatic compression device
[2018-04-02 10:54] VITALS: BP 133/65
--- NOTE | 2018-04-02 21:06 | Electrocardiograph Report ---
[place] [id number] Test Date: 2018-03-31 Pat Name: Citlaly Sams Department: 103 Room: 3A41 Gender: Finishing Operator: RUPALI : [id number] Requested By: Mauricio Vallecillo Order Number: [id number] Reading MD: Emi Clark Measurements Intervals [place] Rate: 72 P: 39 PA: 187 QRS: 18 QRSD: 63 T: 179 QT: 379 QTc: 403 Interpretive Statements SINUS RHYTHM ST DEVIATION AND MODERATE T-WAVE ABNORMALITY, CONSIDER LATERAL ISCHEMIA [-0.1+ mV T WAVE IN I/aVL/V5/V6] Electronically Signed On 04-02-2018 17:30:13 EDT by Emi Clark
--- NOTE | 2018-04-14 13:58 | Event Note ---
Date of Encounter: 04/14/18 Time of Encounter: 13:57 There appears to be [employer] Issue.. Date of Consult was 04/01 Date of Procedure was 04/01 Date of follow up visit 04/02
--- NOTE | 2018-04-14 14:03 | Event Note ---
Date of Encounter: 04/14/18 Time of Encounter: 14:02 This is clarification for billing and Medical Records: Date of visit was 04/05, not the .
== END 2018-04-02 12:36 | disposition home or self-care (01) ==
LOC: EMEROO 15:04 → 3ANU 15:04
PROVIDERS: ADMIT Internal Medicine; ATTEND Internal Medicine
PROC: ENDOEBX (2018-04-01 12:00)